=== PATIENT | male | born 1935 | race Asian ===

== ENCOUNTER 2023-04-08 13:56 | Inpatient (IN) | payer OTHER ==
[~2023-04-08] VITALS: Ht 167.6 cm; Wt 73.0 kg
[2023-04-08 14:00] VITALS: BP_SYST 121; PULSE 82; RESP 16; TEMP 97.8; O2SAT 97
[2023-04-08 14:39] LABS: BASOPHILS % (AUTO) 0.4 % (0.0-2.0); EOSINOPHILS % (AUTO) 0.6 % (0.0-4.0); HEMATOCRIT 30.2 % (36-54); HEMOGLOBIN 9.7 g/dL (14.0-18.0); LYMPHOCYTES # (AUTO) 0.9 K/uL (1.0-5.5); LYMPHOCYTES % (AUTO) 10.6 % (20.5-51.5); MEAN CORPUSCULAR HEMOGLOBIN 24 pg (27-31); MEAN CORPUSCULAR HGB CONC 32 % (32-36); MEAN CORPUSCULAR VOLUME 76 fL (79.0-98.0); MONOCYTES # (AUTO) 0.5 K/uL (0.0-1.0); MONOCYTES % (AUTO) 6.6 % (1.7-9.3); NEUTROPHILS # (AUTO) 6.7 K/uL (1.8-7.7); NEUTROPHILS % (AUTO) 81.8 % (40.0-70.0); PLATELET COUNT (AUTO) 154 K/uL (130-430); RED BLOOD CELL COUNT(AUTO) 3.98 MIL/uL (4.2-6.2); RED CELL DISTRIBUTION WIDTH 16.3 % (9.0-15.0); WHITE BLOOD COUNT (AUTO) 8.2 K/uL (4.8-10.8)
[2023-04-08 14:43] LABS: BILIRUBIN,URINE 2+ (NEGATIVE); BLOOD, URINE 3+ (NEGATIVE); COLOR,URINE YELLOW (YELLOW); GLUCOSE,URINE NEGATIVE (NEGATIVE); KETONES,URINE TRACE (NEGATIVE); LEUKOCYTE ESTERASE ,URINE 3+ (NEGATIVE); NITRITE, URINE POSITIVE (NEGATIVE); PH,URINE 5.5 (5.0-8.0); PROTEIN URINE 1+ (NEGATIVE)
[2023-04-08 14:52] LABS: CLARITY/URINE HAZY (CLEAR)
[2023-04-08 14:55] LABS: BACTERIA,URINE MODERATE /HPF (None Seen); CALCIUM OXALATE CRYSTALS,UR 0-10 /HPF (None Seen); MUCUS,URINE None Seen /LPF (None Seen); WBC,URINE 50-80 /HPF (0-3)
[2023-04-08 15:20] LABS: ANION GAP 5 (5-15); CARBON DIOXIDE 30 mmol/L (23-29); CHLORIDE 93 mmol/L (98-107); CREATININE 1.38 mg/dL (0.55-1.30); GLUCOSE 185 mg/dL (74-106); POTASSIUM 3.2 mmol/L (3.5-5.1); SODIUM SERUM 128 mmol/L (136-145); UREA NITROGEN, BLOOD 26 mg/dL (8-21)
[2023-04-08 15:23] LABS: INR 1.3 (0.80-1.20); PROTHROMBIN TIME 13.3 SECS (9.5-12.5)
[2023-04-08 15:24] LABS: ALANINE AMINOTRANSFERASE 57 U/L (12-78); ALBUMIN 1.8 g/dL (3.4-4.8); ASPARTATE AMINOTRANSFERASE 113 U/L (10-37); LIPASE 131 U/L (73-393); TOTAL BILIRUBIN 3.4 mg/dL (0.0-1.0); TOTAL PROTEIN, SERUM 6.3 g/dL (6.4-8.3)
[2023-04-08] MEDS ORDERED: PIPERACILLIN/TAZOBACTAM 2.25 GM in NS 50 ML IV ONE (15:45)
[2023-04-08] MEDS ORDERED: NS 500 ML IV ONE (15:45)
[2023-04-08] MEDS ORDERED: POTASSIUM CHLORIDE 20 MEQ/PKT PACKET PO ONE (15:45)
[2023-04-08] MEDS ORDERED: VANCOMYCIN HCL 1,000 MG in NS 250 ML IV ONE (15:45)
[2023-04-08] MEDS ORDERED: APIX2.5T PO (16:34)
[2023-04-08] MEDS ORDERED: BENI20 PO (16:34)
[2023-04-08] MEDS ORDERED: [UNRECOGNIZED DRUG - OTHER] PO (16:34)
[2023-04-08] MEDS ORDERED: SERT25TA PO (16:34)
[2023-04-08] MEDS ORDERED: HYDR-3917 PO (16:34)
[2023-04-08] MEDS ORDERED: TAMS-11 PO (16:34)
[2023-04-08] MEDS ORDERED: LEVO125T8 PO (16:34)
[2023-04-08] MEDS ORDERED: INSU100V9 SQ (16:34)
[2023-04-08] MEDS ORDERED: OMEP20CA15 PO (16:34)
[2023-04-08] MEDS ORDERED: FER300L PO (16:34)
[2023-04-08] MEDS ORDERED: URSO500T7 PO (16:34)
[2023-04-08] MEDS ORDERED: FURO-149 PO (16:34)
[2023-04-08] MEDS ORDERED: INSU200I SQ (16:34)
[2023-04-08] MEDS ORDERED: MONT-47 (16:34)
[2023-04-08] MEDS ORDERED: ROSU10TA2 PO (16:34)
[2023-04-08] MEDS ORDERED: FENO145T PO (16:34)
[2023-04-08] MEDS ORDERED: CARV3.1246 PO (16:34)
[2023-04-08] MEDS ORDERED: PIPERACILLIN/TAZOBACTAM 2.25 GM VIAL IV ONE (16:51)
[2023-04-08] MEDS ORDERED: VANCOMYCIN HCL 1000 MG/VIAL IV ONE (16:51)
[2023-04-08] MEDS ORDERED: ONDANSETRON HCL 4 MG/2 ML VIAL IVP ONE (17:15)
[2023-04-08 20:35] VITALS: BP_SYST 136; PULSE 70; RESP 18; TEMP 96.8; O2SAT 99
[2023-04-09] VITALS (13 sets, daily range): BP systolic 115–136; PULSE 70–74; RESP 16–18; TEMP 96.2–97.8; O2SAT 93–99
[2023-04-09] MEDS ORDERED: NALOXONE HCL 0.4 MG/ML AMP (NARCAN) IVP PRN (01:00)
[2023-04-09] MEDS ORDERED: HYDROcodone/ACETAMIN 5-325 MG TAB (NORCO/ VICODIN) PO PRN (01:00)
[2023-04-09] MEDS ORDERED: PIPERACILLIN/TAZO 2.25G/DEX-IS 50 ML IV SCH ×2 (01:30→09:00)
[2023-04-09] MEDS ORDERED: DICYCLOMINE HCL 10 MG CAPSULE PO PRN (01:30)
[2023-04-09] MEDS: TAMSULOSIN HCL 0.4 MG CAP PO SCH ×2 (02:22→10:02)
[2023-04-09] MEDS: APIXABAN 2.5 MG TABLET PO SCH ×3 (02:25→22:22)
[2023-04-09] MEDS ORDERED: PIPERACILLIN/TAZOBACTAM 2.25 GM VIAL IV ONE (03:20)
[2023-04-09 05:57] LABS: EOSINOPHILS # (AUTO) 0.1 K/uL (0.0-0.4); EOSINOPHILS % (AUTO) 1.1 % (0.0-4.0); HEMATOCRIT 28.7 % (36-54); HEMOGLOBIN 9.3 g/dL (14.0-18.0); LYMPHOCYTES # (AUTO) 0.6 K/uL (1.0-5.5); LYMPHOCYTES % (AUTO) 8.5 % (20.5-51.5); MEAN CORPUSCULAR HEMOGLOBIN 25 pg (27-31); MEAN CORPUSCULAR HGB CONC 32 % (32-36); MEAN CORPUSCULAR VOLUME 76 fL (79.0-98.0); MONOCYTES # (AUTO) 0.4 K/uL (0.0-1.0); MONOCYTES % (AUTO) 6.4 % (1.7-9.3); NEUTROPHILS # (AUTO) 5.9 K/uL (1.8-7.7); PLATELET COUNT (AUTO) 145 K/uL (130-430); RED BLOOD CELL COUNT(AUTO) 3.79 MIL/uL (4.2-6.2); RED CELL DISTRIBUTION WIDTH 16.4 % (9.0-15.0); WHITE BLOOD COUNT (AUTO) 7.1 K/uL (4.8-10.8)
[2023-04-09 06:40] LABS: ALANINE AMINOTRANSFERASE 51 U/L (12-78); ALBUMIN 1.6 g/dL (3.4-4.8); ANION GAP 6 (5-15); ASPARTATE AMINOTRANSFERASE 92 U/L (10-37); CARBON DIOXIDE 28 mmol/L (23-29); CHLORIDE 93 mmol/L (98-107); CHOLESTEROL 106 mg/dL (<200); CREATININE 1.29 mg/dL (0.55-1.30); GLUCOSE 196 mg/dL (74-106); HDL CHOLESTEROL 15 mg/dL (>45); POTASSIUM 3.5 mmol/L (3.5-5.1); SODIUM SERUM 127 mmol/L (136-145); TOTAL BILIRUBIN 3.3 mg/dL (0.0-1.0); TOTAL PROTEIN, SERUM 6.1 g/dL (6.4-8.3); TRIGLYCERIDES 153 mg/dL (30-150); UREA NITROGEN, BLOOD 24 mg/dL (8-21)
[2023-04-09] MEDS: INSULIN REGULAR, HUMAN 100 UNITS/ML, 3 ML VIAL (humuLIN R) SUBCUT PRN ×3 (07:58→17:40)
[2023-04-09] MEDS ORDERED: FERROUS SULFATE 300 MG/5 ML UDC PO SCH (09:00)
[2023-04-09] MEDS: PIPERACILLIN/TAZO 2.25G/DEX-IS 50 ML IV SCH ×3 (09:59→21:23)
[2023-04-09] MEDS: LEVOTHYROXINE SODIUM 0.125 MG TABLET PO SCH (10:00)
[2023-04-09] MEDS: CARVEDILOL 3.125 MG TABLET (COREG) PO SCH (10:02)
[2023-04-09] MEDS: MONTELUKAST 10 MG TABLET PO SCH (10:03)
[2023-04-09] MEDS: ursodioL 300 MG CAPSULE PO SCH ×3 (10:03→21:22)
[2023-04-09] MEDS: PANTOPRAZOLE SODIUM 40 MG TAB PO SCH (10:03)
[2023-04-09] MEDS: INSULIN GLARGINE 100 UNITS/ML, 10 ML VIAL SQ SCH (10:06)
[2023-04-09] MEDS: FUROSEMIDE 40 MG TABLET PO SCH (10:08)
[2023-04-09] MEDS ORDERED: COMMUNICATION ORDER XX ONE (16:15)
[2023-04-09] MEDS ORDERED: ROSUVASTATIN CALCIUM 5 MG/TAB (CRESTOR) PO SCH (21:00)
[2023-04-09] MEDS: ATORVASTATIN 20 MG TABLET PO SCH (21:22)
[2023-04-09] MEDS: SERTRALINE HCL 50 MG TABLET PO SCH (21:22)
[2023-04-09] MEDS: FENOFIBRATE NANOCRYSTALLIZED 48 MG TABLET (TRICOR) PO SCH (21:23)
[2023-04-09] MEDS: ALBUTEROL SULFATE 0.083% 2.5 MG/3 ML VIAL.NEB INH PRN (22:48)
[2023-04-10] VITALS (7 sets, daily range): BP systolic 107–133; PULSE 67–79; RESP 16–17; TEMP 96.8–97.9; O2SAT 97–100
[2023-04-10] MEDS: PIPERACILLIN/TAZO 2.25G/DEX-IS 50 ML IV SCH ×4 (03:07→22:13)
[2023-04-10 06:06] LABS: BASOPHILS % (AUTO) 0.2 % (0.0-2.0); EOSINOPHILS # (AUTO) 0.2 K/uL (0.0-0.4); EOSINOPHILS % (AUTO) 2.8 % (0.0-4.0); HEMATOCRIT 29.1 % (36-54); HEMOGLOBIN 9.4 g/dL (14.0-18.0); LYMPHOCYTES # (AUTO) 0.7 K/uL (1.0-5.5); MEAN CORPUSCULAR HEMOGLOBIN 25 pg (27-31); MEAN CORPUSCULAR HGB CONC 33 % (32-36); MEAN CORPUSCULAR VOLUME 76 fL (79.0-98.0); MONOCYTES # (AUTO) 0.4 K/uL (0.0-1.0); NEUTROPHILS # (AUTO) 6.2 K/uL (1.8-7.7); PLATELET COUNT (AUTO) 140 K/uL (130-430); RED BLOOD CELL COUNT(AUTO) 3.84 MIL/uL (4.2-6.2); RED CELL DISTRIBUTION WIDTH 16.4 % (9.0-15.0); WHITE BLOOD COUNT (AUTO) 7.5 K/uL (4.8-10.8)
[2023-04-10 06:14] LABS: TOTAL IRON BIND. CAPACITY 126 ug/dL (250-450)
[2023-04-10 06:47] LABS: ERYTHROCYTE SEDIMENTATION RATE 66 MM/HR (0-15)
[2023-04-10 06:58] LABS: ALANINE AMINOTRANSFERASE 50 U/L (12-78); ALBUMIN 1.5 g/dL (3.4-4.8); ANION GAP 5 (5-15); ASPARTATE AMINOTRANSFERASE 90 U/L (10-37); CALCIUM 7.8 mg/dL (8.4-11.0); CARBON DIOXIDE 29 mmol/L (23-29); CHLORIDE 93 mmol/L (98-107); CREATININE 1.41 mg/dL (0.55-1.30); GLUCOSE 126 mg/dL (74-106); PHOSPHORUS 2.1 mg/dL (2.7-4.5); POTASSIUM 3.5 mmol/L (3.5-5.1); SODIUM SERUM 127 mmol/L (136-145); THYROID STIMULATING HORMONE 5.69 uIu/mL (0.34-4.82); UREA NITROGEN, BLOOD 22 mg/dL (8-21)
[2023-04-10] MEDS: MONTELUKAST 10 MG TABLET PO SCH (10:37)
[2023-04-10] MEDS: CARVEDILOL 3.125 MG TABLET (COREG) PO SCH (10:37)
[2023-04-10] MEDS: ursodioL 300 MG CAPSULE PO SCH ×3 (10:37→20:23)
[2023-04-10] MEDS: TAMSULOSIN HCL 0.4 MG CAP PO SCH (10:37)
[2023-04-10] MEDS: PANTOPRAZOLE SODIUM 40 MG TAB PO SCH (10:38)
[2023-04-10] MEDS: LEVOTHYROXINE SODIUM 0.125 MG TABLET PO SCH (10:38)
[2023-04-10] MEDS: FUROSEMIDE 40 MG TABLET PO SCH (10:38)
[2023-04-10] MEDS: FERROUS SULFATE 325 MG TABLET.DR PO SCH (10:38)
[2023-04-10] MEDS: APIXABAN 2.5 MG TABLET PO SCH ×2 (10:50→20:36)
[2023-04-10] MEDS: INSULIN GLARGINE 100 UNITS/ML, 10 ML VIAL SQ SCH (10:51)
[2023-04-10] MEDS ORDERED: NA PHOS 30 MM in NS 250 ML IV ONE (11:30)
[2023-04-10] MEDS: INSULIN REGULAR, HUMAN 100 UNITS/ML, 3 ML VIAL (humuLIN R) SUBCUT PRN ×2 (11:48→17:09)
[2023-04-10] MEDS: NACL 0.9% 1,000 ML IV SCH ×3 (11:50→14:00)
[2023-04-10] MEDS: ALBUTEROL SULFATE 0.083% 2.5 MG/3 ML VIAL.NEB INH PRN (11:57)
[2023-04-10] MEDS: DIPHENHYDRAMINE HCL 50 MG CAPSULE PO PRN (17:03)
[2023-04-10] MEDS: FENOFIBRATE NANOCRYSTALLIZED 48 MG TABLET (TRICOR) PO SCH (20:23)
[2023-04-10] MEDS: ATORVASTATIN 20 MG TABLET PO SCH (20:23)
[2023-04-10] MEDS: SERTRALINE HCL 50 MG TABLET PO SCH (20:23)
[2023-04-11] VITALS: BP_SYST 117; PULSE 70; RESP 16; TEMP 97; O2SAT 99
[2023-04-11] MEDS: DIPHENHYDRAMINE HCL 50 MG CAPSULE PO PRN (02:00)
[2023-04-11] MEDS: PIPERACILLIN/TAZO 2.25G/DEX-IS 50 ML IV SCH ×3 (04:08→16:00)
[2023-04-11 05:27] LABS: ERYTHROCYTE SEDIMENTATION RATE 34 MM/HR (0-15)
[2023-04-11 05:34] LABS: BASOPHILS % (AUTO) 0.3 % (0.0-2.0); EOSINOPHILS # (AUTO) 0.3 K/uL (0.0-0.4); EOSINOPHILS % (AUTO) 3.6 % (0.0-4.0); HEMATOCRIT 29.1 % (36-54); HEMOGLOBIN 9.5 g/dL (14.0-18.0); LYMPHOCYTES # (AUTO) 1.1 K/uL (1.0-5.5); LYMPHOCYTES % (AUTO) 15.3 % (20.5-51.5); MEAN CORPUSCULAR HEMOGLOBIN 25 pg (27-31); MEAN CORPUSCULAR HGB CONC 33 % (32-36); MEAN CORPUSCULAR VOLUME 75 fL (79.0-98.0); MONOCYTES # (AUTO) 0.4 K/uL (0.0-1.0); MONOCYTES % (AUTO) 4.9 % (1.7-9.3); NEUTROPHILS # (AUTO) 5.7 K/uL (1.8-7.7); NEUTROPHILS % (AUTO) 75.9 % (40.0-70.0); PLATELET COUNT (AUTO) 147 K/uL (130-430); RED BLOOD CELL COUNT(AUTO) 3.87 MIL/uL (4.2-6.2); RED CELL DISTRIBUTION WIDTH 16.7 % (9.0-15.0); WHITE BLOOD COUNT (AUTO) 7.5 K/uL (4.8-10.8)
[2023-04-11 06:12] LABS: ALANINE AMINOTRANSFERASE 53 U/L (12-78); ALBUMIN 1.5 g/dL (3.4-4.8); ANION GAP 9 (5-15); ASPARTATE AMINOTRANSFERASE 90 U/L (10-37); CALCIUM 7.9 mg/dL (8.4-11.0); CARBON DIOXIDE 28 mmol/L (23-29); CHLORIDE 93 mmol/L (98-107); CREATININE 1.35 mg/dL (0.55-1.30); GLUCOSE 88 mg/dL (74-106); PHOSPHORUS 3.6 mg/dL (2.7-4.5); POTASSIUM 3.3 mmol/L (3.5-5.1); SODIUM SERUM 130 mmol/L (136-145); TOTAL BILIRUBIN 4.1 mg/dL (0.0-1.0); UREA NITROGEN, BLOOD 21 mg/dL (8-21)
[2023-04-11] MEDS: NACL 0.9% 1,000 ML IV SCH (06:34)
[2023-04-11 07:30] VITALS: O2SAT 96
[2023-04-11 08:11] VITALS: BP_SYST 119; PULSE 70; RESP 16; TEMP 96.8; O2SAT 98
[2023-04-11] MEDS ORDERED: INSULIN GLARGINE 100 UNITS/ML, 10 ML VIAL SQ SCH (09:00)
[2023-04-11] MEDS: FERROUS SULFATE 325 MG TABLET.DR PO SCH (09:07)
[2023-04-11] MEDS: ursodioL 300 MG CAPSULE PO SCH ×2 (09:07→15:29)
[2023-04-11] MEDS: TAMSULOSIN HCL 0.4 MG CAP PO SCH (09:07)
[2023-04-11] MEDS: PANTOPRAZOLE SODIUM 40 MG TAB PO SCH (09:08)
[2023-04-11] MEDS: MONTELUKAST 10 MG TABLET PO SCH (09:08)
[2023-04-11] MEDS: CARVEDILOL 3.125 MG TABLET (COREG) PO SCH (09:09)
[2023-04-11] MEDS: LEVOTHYROXINE SODIUM 0.125 MG TABLET PO SCH (09:09)
[2023-04-11] MEDS: APIXABAN 2.5 MG TABLET PO SCH (09:11)
[2023-04-11 12:00] VITALS: BP_SYST 106; PULSE 71; RESP 18; TEMP 97.8
[2023-04-11] MEDS ORDERED: LEVO125T8 PO (13:45)
[2023-04-11] MEDS ORDERED: AUG875 PO (13:45)
[2023-04-11] MEDS ORDERED: [UNRECOGNIZED DRUG - CODE] PO (13:48)
[2023-04-11 14:54] VITALS: BP_SYST 119; PULSE 70; RESP 16; TEMP 96.8; O2SAT 98
== END 2023-04-11 16:45 | disposition home or self-care (01) | DRG 919 ==
LOC: SED 13:56 → SMU 16:00
PROVIDERS: ADMIT Preventive Medicine Preventive Medicine/Occupational Environmental Medicine; ATTEND Specialist
DX: T85.79XA Infection and inflammatory reaction due to other internal prosthetic devices, implants and grafts, initial encounter (principal); E43 Unspecified severe protein-calorie malnutrition; K75.0 Abscess of liver; K80.63 Calculus of gallbladder and bile duct with acute cholecystitis with obstruction; N39.0 Urinary tract infection, site not specified; I13.0 Hypertensive heart and chronic kidney disease with heart failure and stage 1 through stage 4 chronic kidney disease, or unspecified chronic kidney disease; N17.9 Acute kidney failure, unspecified; E87.1 Hypo-osmolality and hyponatremia; I42.9 Cardiomyopathy, unspecified; R18.8 Other ascites; D63.8 Anemia in other chronic diseases classified elsewhere; E83.51 Hypocalcemia; E88.09 Other disorders of plasma-protein metabolism, not elsewhere classified; E83.39 Other disorders of phosphorus metabolism; I25.10 Atherosclerotic heart disease of native coronary artery without angina pectoris; F03.C0 Unspecified dementia, severe, without behavioral disturbance, psychotic disturbance, mood disturbance, and anxiety; E78.5 Hyperlipidemia, unspecified; K21.9 Gastro-esophageal reflux disease without esophagitis; J44.9 Chronic obstructive pulmonary disease, unspecified; E11.65 Type 2 diabetes mellitus with hyperglycemia; I50.9 Heart failure, unspecified; N40.0 Benign prostatic hyperplasia without lower urinary tract symptoms; I48.91 Unspecified atrial fibrillation; N18.30 Chronic kidney disease, stage 3 unspecified; E11.22 Type 2 diabetes mellitus with diabetic chronic kidney disease; Z95.0 Presence of cardiac pacemaker; Z88.1 Allergy status to other antibiotic agents; Z79.899 Other long term (current) drug therapy; Z79.4 Long term (current) use of insulin; Z79.01 Long term (current) use of anticoagulants; Z86.73 Personal history of transient ischemic attack (TIA), and cerebral infarction without residual deficits; Z87.891 Personal history of nicotine dependence; Z90.49 Acquired absence of other specified parts of digestive tract; Z68.26 Body mass index [BMI] 26.0-26.9, adult
CPT/HCPCS: 36415; 71045; 76376; 80053; 80061; 81000; 82962; 83037; 83540; 83550; 83605; 83690; 83735; 83880; 84100; 84443; 84484; 85025; 85610-TC; 85651-TC; 85730-TC; 87040; 87081; 87086; 87186-TC; 93005; 94640; 94760; 96365; 96368; 96375; 97116-GP; 97163-GP; 99291; J1815; J2405; J2543; J3370; J7030; J7050; Q0163

== ENCOUNTER 2023-04-14 04:31 | Inpatient (IN) | payer OTHER ==
[~2023-04-14] VITALS: Ht 167.6 cm; Wt 86.2 kg
[2023-04-14] VITALS (8 sets, daily range): BP systolic 107–127; PULSE 85–100; RESP 16–20; TEMP 97–97.8; O2SAT 32–99
[~2023-04-14 04:31] MED LIST: APIX2.5T PO; AUG875 PO; CARV3.1246 PO; FENO145T PO; FER300L PO; FURO-149 PO; HYDR-3917 PO; INSU100V9 SQ; LEVO125T8 PO; MONT-47; OMEP20CA15 PO; ROSU10TA2 PO; SERT25TA PO; TAMS-11 PO; URSO500T7 PO; [UNRECOGNIZED DRUG - CODE] PO; [UNRECOGNIZED DRUG - OTHER] PO
[2023-04-14 05:34] LABS: BASOPHILS # (AUTO) 0.1 K/uL (0.0-0.2); BASOPHILS % (AUTO) 0.6 % (0.0-2.0); EOSINOPHILS # (AUTO) 0.2 K/uL (0.0-0.4); EOSINOPHILS % (AUTO) 1.9 % (0.0-4.0); HEMATOCRIT 28.8 % (36-54); HEMOGLOBIN 9.3 g/dL (14.0-18.0); LYMPHOCYTES # (AUTO) 0.3 K/uL (1.0-5.5); LYMPHOCYTES % (AUTO) 2.5 % (20.5-51.5); MEAN CORPUSCULAR HEMOGLOBIN 25 pg (27-31); MEAN CORPUSCULAR HGB CONC 32 % (32-36); MEAN CORPUSCULAR VOLUME 76 fL (79.0-98.0); MONOCYTES # (AUTO) 0.1 K/uL (0.0-1.0); MONOCYTES % (AUTO) 1.4 % (1.7-9.3); NEUTROPHILS # (AUTO) 10.2 K/uL (1.8-7.7); NEUTROPHILS % (AUTO) 93.6 % (40.0-70.0); PLATELET COUNT (AUTO) 181 K/uL (130-430); RED CELL DISTRIBUTION WIDTH 16.9 % (9.0-15.0); WHITE BLOOD COUNT (AUTO) 10.9 K/uL (4.8-10.8)
[2023-04-14 05:59] LABS: ALANINE AMINOTRANSFERASE 64 U/L (12-78); ALBUMIN 1.9 g/dL (3.4-4.8); ANION GAP 7 (5-15); ASPARTATE AMINOTRANSFERASE 128 U/L (10-37); CALCIUM 8.2 mg/dL (8.4-11.0); CARBON DIOXIDE 26 mmol/L (23-29); CHLORIDE 88 mmol/L (98-107); GLUCOSE 131 mg/dL (74-106); POTASSIUM 3.7 mmol/L (3.5-5.1); SODIUM SERUM 121 mmol/L (136-145); TOTAL BILIRUBIN 6.4 mg/dL (0.0-1.0); TOTAL PROTEIN, SERUM 6.6 g/dL (6.4-8.3); UREA NITROGEN, BLOOD 21 mg/dL (8-21)
[2023-04-14 09:27] LABS: ABG O2 SAT% ESTIMATE 94.4 % (94.0-100.0); BLOOD GAS BASE EXCESS 2.8 mmol/L (-3.0-3.0); BLOOD GAS HCO3 25.3 mmol/L (21.0-27.0); BLOOD GAS PCO2 32.9 mmHg (32.0-45.0)
[2023-04-14 09:27] LABS: BILIRUBIN,URINE 3+ (NEGATIVE); BLOOD, URINE 3+ (NEGATIVE); CLARITY/URINE SL CLOUDY (CLEAR); COLOR,URINE YELLOW (YELLOW); GLUCOSE,URINE NEGATIVE (NEGATIVE); KETONES,URINE TRACE (NEGATIVE); LEUKOCYTE ESTERASE ,URINE TRACE (NEGATIVE); NITRITE, URINE NEGATIVE (NEGATIVE); PH,URINE 5.5 (5.0-8.0); PROTEIN URINE 1+ (NEGATIVE)
[2023-04-14 09:29] LABS: BLOOD GAS PH 7.504 (7.350-7.450)
[2023-04-14 09:37] LABS: BACTERIA,URINE MODERATE /HPF (None Seen)
[2023-04-14] MEDS ORDERED: IPRATROPIUM BROM 0.5 MG/2.5 ML VIAL.NEB (ATROVENT) INH ONE (09:45)
[2023-04-14] MEDS ORDERED: ALBUTEROL SULFATE 0.083% 2.5 MG/3 ML VIAL.NEB INH ONE (09:45)
[2023-04-14 09:48] LABS: INFLUENZA TYPE A negative (NEGATIVE); INFLUENZA TYPE B NEGATIVE (NEGATIVE)
[2023-04-14] MEDS ORDERED: AMOXICILLIN/POTASSIUM CLAV 875 MG TABLET PO SCH (10:30)
[2023-04-14] MEDS ORDERED: ALBUMIN HUMAN 25% 100 ML IV ONE (10:30)
[2023-04-14] MEDS ORDERED: HYDROcodone/ACETAMIN 5-325 MG TAB (NORCO/ VICODIN) PO PRN (10:30)
[2023-04-14] MEDS ORDERED: FUROSEMIDE 111.11 MG in D5W 90 ML IV ONE (10:30)
[2023-04-14 11:06] LABS: INR 1.5 (0.80-1.20); PROTHROMBIN TIME 15.5 SECS (9.5-12.5)
[2023-04-14] MEDS ORDERED: GLUCOSE (DEXTROSE) ORAL GEL -Adults PO PRN (12:30)
[2023-04-14] MEDS ORDERED: D5W 1,000 ML IV PRN (12:30)
[2023-04-14] MEDS ORDERED: DEXTROSE 50%-WATER 50 ML DISP.SYRIN IVP PRN (12:30)
[2023-04-14] MEDS: FUROSEMIDE 100 MG in D5W 90 ML IV SCH (13:46)
[2023-04-14] MEDS ORDERED: INSULIN REGULAR, HUMAN 100 UNITS/ML, 3 ML VIAL SUBCUT SCH (17:00)
[2023-04-14] MEDS: INSULIN REGULAR, HUMAN 100 UNITS/ML, 3 ML VIAL (humuLIN R) SUBCUT PRN ×2 (18:22→22:03)
[2023-04-14] MEDS: ceFAZolin SODIUM 1 GM in D5W 50 ML IV SCH (18:23)
[2023-04-14] MEDS: IPRATROPIUM/ALBUTEROL SULFATE 3 ML AMPUL.NEB (DUONEB) INH SCH (19:47)
[2023-04-14] MEDS ORDERED: ROSUVASTATIN CALCIUM 5 MG/TAB (CRESTOR) PO SCH (21:00)
[2023-04-14] MEDS: SERTRALINE HCL 50 MG TABLET PO SCH (21:40)
[2023-04-14] MEDS ORDERED: metOLazone 5 MG TABLET PO ONE (22:00)
[2023-04-14] MEDS ORDERED: ONDANSETRON HCL 4 MG/2 ML VIAL IVP PRN (22:30)
[2023-04-14] MEDS ORDERED: metOLazone 5 MG TABLET ONE (23:45)
[2023-04-15] VITALS (8 sets, daily range): BP systolic 106–139; PULSE 81–86; RESP 14–18; TEMP 96.8–98.7; O2SAT 94–100
[2023-04-15] MEDS: IPRATROPIUM/ALBUTEROL SULFATE 3 ML AMPUL.NEB (DUONEB) INH SCH ×4 (01:00→19:35)
[2023-04-15] MEDS ORDERED: ONDANSETRON HCL 4 MG/2 ML VIAL IVP PRN (01:15)
[2023-04-15 05:42] LABS: BASOPHILS % (AUTO) 0.1 % (0.0-2.0); EOSINOPHILS # (AUTO) 0.4 K/uL (0.0-0.4); EOSINOPHILS % (AUTO) 3.3 % (0.0-4.0); HEMATOCRIT 24.8 % (36-54); HEMOGLOBIN 7.9 g/dL (14.0-18.0); LYMPHOCYTES # (AUTO) 0.9 K/uL (1.0-5.5); LYMPHOCYTES % (AUTO) 7.7 % (20.5-51.5); MEAN CORPUSCULAR HEMOGLOBIN 24 pg (27-31); MEAN CORPUSCULAR HGB CONC 32 % (32-36); MEAN CORPUSCULAR VOLUME 77 fL (79.0-98.0); MONOCYTES # (AUTO) 0.6 K/uL (0.0-1.0); MONOCYTES % (AUTO) 5.3 % (1.7-9.3); NEUTROPHILS # (AUTO) 9.4 K/uL (1.8-7.7); NEUTROPHILS % (AUTO) 83.6 % (40.0-70.0); PLATELET COUNT (AUTO) 119 K/uL (130-430); RED BLOOD CELL COUNT(AUTO) 3.24 MIL/uL (4.2-6.2); RED CELL DISTRIBUTION WIDTH 16.8 % (9.0-15.0); WHITE BLOOD COUNT (AUTO) 11.2 K/uL (4.8-10.8)
[2023-04-15] MEDS: ceFAZolin SODIUM 1 GM in D5W 50 ML IV SCH ×2 (05:42→16:33)
[2023-04-15 05:58] LABS: ALANINE AMINOTRANSFERASE 44 U/L (12-78); ALBUMIN 1.7 g/dL (3.4-4.8); ANION GAP 6 (5-15); ASPARTATE AMINOTRANSFERASE 83 U/L (10-37); CALCIUM 7.9 mg/dL (8.4-11.0); CARBON DIOXIDE 27 mmol/L (23-29); CHLORIDE 87 mmol/L (98-107); CREATININE 1.85 mg/dL (0.55-1.30); GLUCOSE 140 mg/dL (74-106); PHOSPHORUS 2.4 mg/dL (2.7-4.5); POTASSIUM 3.9 mmol/L (3.5-5.1); SODIUM SERUM 120 mmol/L (136-145); TOTAL BILIRUBIN 5.4 mg/dL (0.0-1.0); TOTAL PROTEIN, SERUM 5.6 g/dL (6.4-8.3); UREA NITROGEN, BLOOD 26 mg/dL (8-21)
[2023-04-15] MEDS: LEVOTHYROXINE SODIUM 0.15 MG TABLET PO SCH (06:25)
[2023-04-15] MEDS ORDERED: OMEPRAZOLE Non-Formulary 20 MG CAPSULE.DR PO SCH (09:00)
[2023-04-15] MEDS: INSULIN GLARGINE 100 UNITS/ML, 10 ML VIAL SQ SCH (09:05)
[2023-04-15] MEDS: MONTELUKAST 10 MG TABLET PO SCH (10:39)
[2023-04-15] MEDS: TAMSULOSIN HCL 0.4 MG CAP PO SCH (10:39)
[2023-04-15] MEDS: ALBUMIN HUMAN 25% 50 ML IV SCH ×4 (10:39→21:53)
[2023-04-15] MEDS: PANTOPRAZOLE SODIUM 40 MG TAB PO SCH (10:40)
[2023-04-15] MEDS: FERROUS SULFATE 325 MG TABLET.DR PO SCH (10:41)
[2023-04-15] MEDS: CARVEDILOL 3.125 MG TABLET (COREG) PO SCH (10:41)
[2023-04-15] MEDS: ATORVASTATIN 20 MG TABLET PO SCH (10:42)
[2023-04-15] MEDS: INSULIN REGULAR, HUMAN 100 UNITS/ML, 3 ML VIAL (humuLIN R) SUBCUT PRN ×3 (12:03→21:59)
[2023-04-15] MEDS: FUROSEMIDE 100 MG in D5W 90 ML IV SCH (12:30)
[2023-04-15] MEDS: SERTRALINE HCL 50 MG TABLET PO SCH (21:53)
[2023-04-16] VITALS (9 sets, daily range): BP systolic 105–144; PULSE 69–87; RESP 16–18; TEMP 96.6–98; O2SAT 97–100
[2023-04-16] MEDS: IPRATROPIUM/ALBUTEROL SULFATE 3 ML AMPUL.NEB (DUONEB) INH SCH ×4 (01:07→20:26)
[2023-04-16 06:08] LABS: BASOPHILS % (AUTO) 0.2 % (0.0-2.0); EOSINOPHILS # (AUTO) 0.5 K/uL (0.0-0.4); EOSINOPHILS % (AUTO) 4.7 % (0.0-4.0); HEMATOCRIT 23.9 % (36-54); HEMOGLOBIN 7.8 g/dL (14.0-18.0); LYMPHOCYTES # (AUTO) 1.2 K/uL (1.0-5.5); LYMPHOCYTES % (AUTO) 12.5 % (20.5-51.5); MEAN CORPUSCULAR HEMOGLOBIN 25 pg (27-31); MEAN CORPUSCULAR HGB CONC 33 % (32-36); MEAN CORPUSCULAR VOLUME 75 fL (79.0-98.0); MONOCYTES # (AUTO) 0.8 K/uL (0.0-1.0); MONOCYTES % (AUTO) 8.2 % (1.7-9.3); NEUTROPHILS # (AUTO) 7.3 K/uL (1.8-7.7); NEUTROPHILS % (AUTO) 74.4 % (40.0-70.0); PLATELET COUNT (AUTO) 130 K/uL (130-430); RED BLOOD CELL COUNT(AUTO) 3.17 MIL/uL (4.2-6.2); RED CELL DISTRIBUTION WIDTH 16.8 % (9.0-15.0); WHITE BLOOD COUNT (AUTO) 9.9 K/uL (4.8-10.8)
[2023-04-16] MEDS: LEVOTHYROXINE SODIUM 0.15 MG TABLET PO SCH (06:13)
[2023-04-16] MEDS: ceFAZolin SODIUM 1 GM in D5W 50 ML IV SCH ×2 (06:16→16:22)
[2023-04-16] MEDS: INSULIN REGULAR, HUMAN 100 UNITS/ML, 3 ML VIAL (humuLIN R) SUBCUT PRN ×4 (06:18→21:36)
[2023-04-16 06:41] LABS: ALANINE AMINOTRANSFERASE 29 U/L (12-78); ALBUMIN 2.3 g/dL (3.4-4.8); ANION GAP 5 (5-15); ASPARTATE AMINOTRANSFERASE 77 U/L (10-37); CALCIUM 8.5 mg/dL (8.4-11.0); CARBON DIOXIDE 30 mmol/L (23-29); CHLORIDE 86 mmol/L (98-107); CREATININE 1.78 mg/dL (0.55-1.30); GLUCOSE 157 mg/dL (74-106); PHOSPHORUS 2.8 mg/dL (2.7-4.5); SODIUM SERUM 121 mmol/L (136-145); TOTAL BILIRUBIN 5.1 mg/dL (0.0-1.0); TOTAL PROTEIN, SERUM 5.9 g/dL (6.4-8.3); UREA NITROGEN, BLOOD 29 mg/dL (8-21)
[2023-04-16] MEDS: PANTOPRAZOLE SODIUM 40 MG TAB PO SCH (09:25)
[2023-04-16] MEDS: TAMSULOSIN HCL 0.4 MG CAP PO SCH (09:25)
[2023-04-16] MEDS: FERROUS SULFATE 325 MG TABLET.DR PO SCH (09:25)
[2023-04-16] MEDS: CARVEDILOL 3.125 MG TABLET (COREG) PO SCH (09:27)
[2023-04-16] MEDS: ATORVASTATIN 20 MG TABLET PO SCH (09:27)
[2023-04-16] MEDS: MONTELUKAST 10 MG TABLET PO SCH (09:27)
[2023-04-16] MEDS: INSULIN GLARGINE 100 UNITS/ML, 10 ML VIAL SQ SCH (09:31)
[2023-04-16] MEDS: FUROSEMIDE 100 MG in D5W 90 ML IV SCH (09:40)
[2023-04-16] MEDS ORDERED: POTASSIUM CHLORIDE 20 MEQ TAB.PRT.SR PO ONE (12:15)
[2023-04-16] MEDS: DIPHENHYDRAMINE HCL 50 MG CAPSULE PO PRN (16:18)
[2023-04-16] MEDS: SERTRALINE HCL 50 MG TABLET PO SCH (21:34)
[2023-04-17] VITALS (11 sets, daily range): BP systolic 106–117; PULSE 69–80; RESP 16–20; TEMP 96.6–97.6; O2SAT 94–100
[2023-04-17] MEDS: IPRATROPIUM/ALBUTEROL SULFATE 3 ML AMPUL.NEB (DUONEB) INH SCH ×4 (01:39→20:14)
[2023-04-17 05:22] LABS: BASOPHILS % (AUTO) 0.4 % (0.0-2.0); EOSINOPHILS # (AUTO) 0.6 K/uL (0.0-0.4); EOSINOPHILS % (AUTO) 6.7 % (0.0-4.0); HEMATOCRIT 24.6 % (36-54); HEMOGLOBIN 8.2 g/dL (14.0-18.0); LYMPHOCYTES # (AUTO) 1.6 K/uL (1.0-5.5); LYMPHOCYTES % (AUTO) 16.9 % (20.5-51.5); MEAN CORPUSCULAR HEMOGLOBIN 25 pg (27-31); MEAN CORPUSCULAR HGB CONC 33 % (32-36); MEAN CORPUSCULAR VOLUME 75 fL (79.0-98.0); MONOCYTES # (AUTO) 0.8 K/uL (0.0-1.0); MONOCYTES % (AUTO) 8.9 % (1.7-9.3); NEUTROPHILS # (AUTO) 6.2 K/uL (1.8-7.7); NEUTROPHILS % (AUTO) 67.1 % (40.0-70.0); PLATELET COUNT (AUTO) 137 K/uL (130-430); RED CELL DISTRIBUTION WIDTH 16.4 % (9.0-15.0); WHITE BLOOD COUNT (AUTO) 9.3 K/uL (4.8-10.8)
[2023-04-17 05:46] LABS: ANION GAP 4 (5-15); CALCIUM 8.4 mg/dL (8.4-11.0); CARBON DIOXIDE 30 mmol/L (23-29); CREATININE 2.08 mg/dL (0.55-1.30); GLUCOSE 129 mg/dL (74-106); PHOSPHORUS 2.9 mg/dL (2.7-4.5); UREA NITROGEN, BLOOD 32 mg/dL (8-21)
[2023-04-17 05:58] LABS: CHLORIDE 85 mmol/L (98-107); SODIUM SERUM 119 mmol/L (136-145)
[2023-04-17 06:09] LABS: ERYTHROCYTE SEDIMENTATION RATE 14 MM/HR (0-15)
[2023-04-17] MEDS: LEVOTHYROXINE SODIUM 0.15 MG TABLET PO SCH (06:24)
[2023-04-17] MEDS: ceFAZolin SODIUM 1 GM in D5W 50 ML IV SCH ×2 (06:24→17:39)
[2023-04-17] MEDS: INSULIN GLARGINE 100 UNITS/ML, 10 ML VIAL SQ SCH (08:57)
[2023-04-17] MEDS: FERROUS SULFATE 325 MG TABLET.DR PO SCH (10:16)
[2023-04-17] MEDS: TAMSULOSIN HCL 0.4 MG CAP PO SCH (10:16)
[2023-04-17] MEDS: PANTOPRAZOLE SODIUM 40 MG TAB PO SCH (10:16)
[2023-04-17] MEDS: ATORVASTATIN 20 MG TABLET PO SCH (10:17)
[2023-04-17] MEDS: MONTELUKAST 10 MG TABLET PO SCH (10:17)
[2023-04-17] MEDS: CARVEDILOL 3.125 MG TABLET (COREG) PO SCH (10:18)
[2023-04-17] MEDS: DIPHENHYDRAMINE HCL 50 MG CAPSULE PO PRN (10:37)
[2023-04-17] MEDS ORDERED: POTASSIUM CHLORIDE 20 MEQ TAB.PRT.SR PO ONE (11:45)
[2023-04-17] MEDS ORDERED: MAGNESIUM SULFATE 50 ML IV ONE (11:45)
[2023-04-17] MEDS: INSULIN REGULAR, HUMAN 100 UNITS/ML, 3 ML VIAL (humuLIN R) SUBCUT PRN ×3 (11:57→21:31)
[2023-04-17] MEDS: NACL 0.9% 1,000 ML IV SCH (14:53)
[2023-04-17] MEDS: SILDENAFIL CITRATE 20 MG TABLET PO SCH ×2 (14:58→21:29)
[2023-04-17] MEDS: SERTRALINE HCL 50 MG TABLET PO SCH (21:29)
[2023-04-17] MEDS: traZODone HCL 50 MG TABLET (DESYREL) PO PRN (21:38)
[2023-04-18] VITALS (9 sets, daily range): BP systolic 101–141; PULSE 70–72; RESP 14–18; TEMP 97.3–98.4; O2SAT 95–100
[2023-04-18] MEDS: IPRATROPIUM/ALBUTEROL SULFATE 3 ML AMPUL.NEB (DUONEB) INH SCH ×4 (01:00→20:01)
[2023-04-18 05:05] LABS: BASOPHILS % (AUTO) 0.3 % (0.0-2.0); EOSINOPHILS # (AUTO) 0.8 K/uL (0.0-0.4); EOSINOPHILS % (AUTO) 9.5 % (0.0-4.0); HEMATOCRIT 25.1 % (36-54); HEMOGLOBIN 8.3 g/dL (14.0-18.0); LYMPHOCYTES # (AUTO) 1.5 K/uL (1.0-5.5); LYMPHOCYTES % (AUTO) 18.4 % (20.5-51.5); MEAN CORPUSCULAR HEMOGLOBIN 25 pg (27-31); MEAN CORPUSCULAR HGB CONC 33 % (32-36); MEAN CORPUSCULAR VOLUME 76 fL (79.0-98.0); MONOCYTES # (AUTO) 0.9 K/uL (0.0-1.0); MONOCYTES % (AUTO) 10.6 % (1.7-9.3); NEUTROPHILS # (AUTO) 5.1 K/uL (1.8-7.7); NEUTROPHILS % (AUTO) 61.2 % (40.0-70.0); PLATELET COUNT (AUTO) 141 K/uL (130-430); RED BLOOD CELL COUNT(AUTO) 3.32 MIL/uL (4.2-6.2); RED CELL DISTRIBUTION WIDTH 16.5 % (9.0-15.0); WHITE BLOOD COUNT (AUTO) 8.3 K/uL (4.8-10.8)
[2023-04-18 05:18] LABS: ERYTHROCYTE SEDIMENTATION RATE 10 MM/HR (0-15)
[2023-04-18] MEDS: DIPHENHYDRAMINE HCL 50 MG CAPSULE PO PRN (05:25)
[2023-04-18] MEDS: ceFAZolin SODIUM 1 GM in D5W 50 ML IV SCH ×2 (05:27→19:23)
[2023-04-18] MEDS: LEVOTHYROXINE SODIUM 0.15 MG TABLET PO SCH (06:01)
[2023-04-18 06:03] LABS: ALANINE AMINOTRANSFERASE 5 U/L (12-78); ALBUMIN 1.8 g/dL (3.4-4.8); ANION GAP 6 (5-15); ASPARTATE AMINOTRANSFERASE 133 U/L (10-37); CALCIUM 8.3 mg/dL (8.4-11.0); CARBON DIOXIDE 30 mmol/L (23-29); CHLORIDE 89 mmol/L (98-107); CREATININE 1.85 mg/dL (0.55-1.30); GLUCOSE 102 mg/dL (74-106); PHOSPHORUS 2.5 mg/dL (2.7-4.5); POTASSIUM 3.3 mmol/L (3.5-5.1); SODIUM SERUM 125 mmol/L (136-145); TOTAL PROTEIN, SERUM 5.4 g/dL (6.4-8.3); UREA NITROGEN, BLOOD 35 mg/dL (8-21)
[2023-04-18 06:06] LABS: CREATININE, URINE 134.9 mg/dL (Not Estab.); MICROALBUMIN URINE RANDOM 200.6 ug/mL (Not Estab.)
[2023-04-18] MEDS: MONTELUKAST 10 MG TABLET PO SCH (09:57)
[2023-04-18] MEDS: CARVEDILOL 3.125 MG TABLET (COREG) PO SCH (10:00)
[2023-04-18] MEDS: ATORVASTATIN 20 MG TABLET PO SCH (10:00)
[2023-04-18] MEDS: SILDENAFIL CITRATE 20 MG TABLET PO SCH ×3 (10:01→21:46)
[2023-04-18] MEDS: TAMSULOSIN HCL 0.4 MG CAP PO SCH (10:01)
[2023-04-18] MEDS: FERROUS SULFATE 325 MG TABLET.DR PO SCH (10:01)
[2023-04-18] MEDS: PANTOPRAZOLE SODIUM 40 MG TAB PO SCH (10:01)
[2023-04-18] MEDS: INSULIN GLARGINE 100 UNITS/ML, 10 ML VIAL SQ SCH (10:03)
[2023-04-18] MEDS ORDERED: K PHOS 30 MM in NS 250 ML IV ONE (11:00)
[2023-04-18] MEDS: NACL 0.9% 1,000 ML IV SCH (13:00)
[2023-04-18] MEDS: traZODone HCL 50 MG TABLET (DESYREL) PO PRN (21:53)
[2023-04-18] MEDS: INSULIN REGULAR, HUMAN 100 UNITS/ML, 3 ML VIAL (humuLIN R) SUBCUT PRN (21:53)
[2023-04-19] VITALS (10 sets, daily range): BP systolic 91–119; PULSE 67–71; RESP 14–18; TEMP 96.8–97.9; O2SAT 95–99
[2023-04-19] MEDS: IPRATROPIUM/ALBUTEROL SULFATE 3 ML AMPUL.NEB (DUONEB) INH SCH ×4 (01:00→20:02)
[2023-04-19 05:23] LABS: BASOPHILS % (AUTO) 0.3 % (0.0-2.0); EOSINOPHILS # (AUTO) 1.1 K/uL (0.0-0.4); EOSINOPHILS % (AUTO) 12.6 % (0.0-4.0); HEMATOCRIT 26.7 % (36-54); HEMOGLOBIN 8.6 g/dL (14.0-18.0); LYMPHOCYTES # (AUTO) 1.6 K/uL (1.0-5.5); LYMPHOCYTES % (AUTO) 18.3 % (20.5-51.5); MEAN CORPUSCULAR HEMOGLOBIN 24 pg (27-31); MEAN CORPUSCULAR HGB CONC 32 % (32-36); MEAN CORPUSCULAR VOLUME 76 fL (79.0-98.0); MONOCYTES # (AUTO) 0.8 K/uL (0.0-1.0); MONOCYTES % (AUTO) 8.9 % (1.7-9.3); NEUTROPHILS # (AUTO) 5.4 K/uL (1.8-7.7); NEUTROPHILS % (AUTO) 59.9 % (40.0-70.0); PLATELET COUNT (AUTO) 153 K/uL (130-430); RED BLOOD CELL COUNT(AUTO) 3.53 MIL/uL (4.2-6.2); RED CELL DISTRIBUTION WIDTH 16.8 % (9.0-15.0)
[2023-04-19 05:37] LABS: ANION GAP 6 (5-15); CALCIUM 8.1 mg/dL (8.4-11.0); CARBON DIOXIDE 28 mmol/L (23-29); CREATININE 1.79 mg/dL (0.55-1.30); GLUCOSE 121 mg/dL (74-106); PHOSPHORUS 3.9 mg/dL (2.7-4.5); POTASSIUM 3.5 mmol/L (3.5-5.1); UREA NITROGEN, BLOOD 38 mg/dL (8-21)
[2023-04-19 05:45] LABS: ERYTHROCYTE SEDIMENTATION RATE 15 MM/HR (0-15)
[2023-04-19 06:09] LABS: CHLORIDE 85 mmol/L (98-107); SODIUM SERUM 119 mmol/L (136-145)
[2023-04-19] MEDS: ceFAZolin SODIUM 1 GM in D5W 50 ML IV SCH ×2 (06:23→16:24)
[2023-04-19] MEDS: LEVOTHYROXINE SODIUM 0.15 MG TABLET PO SCH (06:23)
[2023-04-19] MEDS ORDERED: FUROSEMIDE 20 MG/2 ML VIAL IVP ONE (07:00)
[2023-04-19] MEDS: MONTELUKAST 10 MG TABLET PO SCH (09:27)
[2023-04-19] MEDS: TAMSULOSIN HCL 0.4 MG CAP PO SCH (09:27)
[2023-04-19] MEDS: ATORVASTATIN 20 MG TABLET PO SCH (09:27)
[2023-04-19] MEDS: CARVEDILOL 3.125 MG TABLET (COREG) PO SCH (09:27)
[2023-04-19] MEDS: PANTOPRAZOLE SODIUM 40 MG TAB PO SCH (09:27)
[2023-04-19] MEDS: FERROUS SULFATE 325 MG TABLET.DR PO SCH (09:27)
[2023-04-19] MEDS: INSULIN GLARGINE 100 UNITS/ML, 10 ML VIAL SQ SCH (09:50)
[2023-04-19] MEDS: SILDENAFIL CITRATE 20 MG TABLET PO SCH ×3 (10:13→21:34)
[2023-04-19] MEDS: INSULIN REGULAR, HUMAN 100 UNITS/ML, 3 ML VIAL (humuLIN R) SUBCUT PRN ×3 (11:59→21:45)
[2023-04-19] MEDS: NACL 0.9% 1,000 ML IV SCH (13:00)
[2023-04-19] MEDS ORDERED: POTASSIUM CHLORIDE 20 MEQ/PKT PACKET PO ONE (14:00)
[2023-04-19] MEDS ORDERED: FUROSEMIDE 20 MG TABLET PO ONE (14:00)
[2023-04-19 20:45] LABS: URINE SODIUM, RANDOM 16 mmol/L (40-220)
[2023-04-19] MEDS: traZODone HCL 50 MG TABLET (DESYREL) PO PRN (21:33)
[2023-04-19] MEDS: SODIUM CHLORIDE 500 MG TABLET PO SCH (21:34)
[2023-04-19] MEDS: HEPARIN SODIUM,PORCINE 5,000 UNITS/ML VIAL SUBCUT SCH (21:46)
[2023-04-20] VITALS (7 sets, daily range): BP systolic 100–127; PULSE 70–76; RESP 17–18; TEMP 97.1–98.2; O2SAT 97–100
[2023-04-20] MEDS: IPRATROPIUM/ALBUTEROL SULFATE 3 ML AMPUL.NEB (DUONEB) INH SCH ×4 (01:00→20:20)
[2023-04-20] MEDS: ceFAZolin SODIUM 1 GM in D5W 50 ML IV SCH ×2 (04:55→17:50)
[2023-04-20 06:07] LABS: HEPATITIS B CORE AB, TOTAL Positive (Negative); HEPATITIS B SURFACE AG Negative (Negative); HEPATITIS C VIRUS AB Non Reactive (Non Reactive)
[2023-04-20] MEDS: LEVOTHYROXINE SODIUM 0.15 MG TABLET PO SCH (06:20)
[2023-04-20 07:44] LABS: INR 5.8 (0.80-1.20); PROTHROMBIN TIME 55.2 SECS (9.5-12.5)
[2023-04-20 08:02] LABS: ALANINE AMINOTRANSFERASE 24 U/L (12-78); ALBUMIN 1.7 g/dL (3.4-4.8); ANION GAP 5 (5-15); ASPARTATE AMINOTRANSFERASE 226 U/L (10-37); CALCIUM 7.9 mg/dL (8.4-11.0); CARBON DIOXIDE 28 mmol/L (23-29); CREATININE 1.84 mg/dL (0.55-1.30); GLUCOSE 127 mg/dL (74-106); PHOSPHORUS 3.2 mg/dL (2.7-4.5); POTASSIUM 3.2 mmol/L (3.5-5.1); TOTAL BILIRUBIN 7.3 mg/dL (0.0-1.0); TOTAL PROTEIN, SERUM 5.4 g/dL (6.4-8.3); UREA NITROGEN, BLOOD 39 mg/dL (8-21)
[2023-04-20 08:05] LABS: CHLORIDE 85 mmol/L (98-107); SODIUM SERUM 118 mmol/L (136-145)
[2023-04-20 08:09] LABS: BASOPHILS % (AUTO) 0.5 % (0.0-2.0); EOSINOPHILS # (AUTO) 1.1 K/uL (0.0-0.4); EOSINOPHILS % (AUTO) 11.4 % (0.0-4.0); HEMATOCRIT 25.1 % (36-54); HEMOGLOBIN 8.4 g/dL (14.0-18.0); LYMPHOCYTES # (AUTO) 1.7 K/uL (1.0-5.5); LYMPHOCYTES % (AUTO) 16.7 % (20.5-51.5); MEAN CORPUSCULAR HEMOGLOBIN 25 pg (27-31); MEAN CORPUSCULAR HGB CONC 33 % (32-36); MEAN CORPUSCULAR VOLUME 76 fL (79.0-98.0); MONOCYTES # (AUTO) 0.7 K/uL (0.0-1.0); MONOCYTES % (AUTO) 7.3 % (1.7-9.3); NEUTROPHILS # (AUTO) 6.4 K/uL (1.8-7.7); NEUTROPHILS % (AUTO) 64.1 % (40.0-70.0); PLATELET COUNT (AUTO) 147 K/uL (130-430); RED CELL DISTRIBUTION WIDTH 16.7 % (9.0-15.0); WHITE BLOOD COUNT (AUTO) 9.9 K/uL (4.8-10.8)
[2023-04-20 08:38] LABS: ERYTHROCYTE SEDIMENTATION RATE 14 MM/HR (0-15)
[2023-04-20] MEDS ORDERED: FUROSEMIDE 20 MG TABLET PO SCH (09:00)
[2023-04-20] MEDS: HEPARIN SODIUM,PORCINE 5,000 UNITS/ML VIAL SUBCUT SCH (09:00)
[2023-04-20] MEDS: SODIUM CHLORIDE 500 MG TABLET PO SCH ×2 (09:02→21:26)
[2023-04-20] MEDS: POTASSIUM CHLORIDE 20 MEQ/PKT PACKET PO SCH (09:02)
[2023-04-20] MEDS: FERROUS SULFATE 325 MG TABLET.DR PO SCH (09:04)
[2023-04-20] MEDS: CARVEDILOL 3.125 MG TABLET (COREG) PO SCH (09:04)
[2023-04-20] MEDS: PANTOPRAZOLE SODIUM 40 MG TAB PO SCH (09:04)
[2023-04-20] MEDS: MONTELUKAST 10 MG TABLET PO SCH (09:04)
[2023-04-20] MEDS: TAMSULOSIN HCL 0.4 MG CAP PO SCH (09:05)
[2023-04-20] MEDS: INSULIN GLARGINE 100 UNITS/ML, 10 ML VIAL SQ SCH (09:08)
[2023-04-20] MEDS: ATORVASTATIN 20 MG TABLET PO SCH (09:16)
[2023-04-20] MEDS: SILDENAFIL CITRATE 20 MG TABLET PO SCH ×3 (09:22→21:25)
[2023-04-20 11:03] LABS: CREATININE, URINE 78.6 mg/dL (Not Estab.); MICROALBUMIN URINE RANDOM 35.9 ug/mL (Not Estab.)
[2023-04-20] MEDS ORDERED: PHYTONADIONE 10 MG/ML AMP SUBCUT ONE (11:15)
[2023-04-20] MEDS ORDERED: POTASSIUM CHLORIDE 20 MEQ TAB.PRT.SR PO ONE (11:15)
[2023-04-20 13:27] LABS: TOTAL IRON BIND. CAPACITY 106 ug/dL (250-450)
[2023-04-20] MEDS: NACL 0.9% 1,000 ML IV SCH (17:51)
[2023-04-20] MEDS: INSULIN REGULAR, HUMAN 100 UNITS/ML, 3 ML VIAL (humuLIN R) SUBCUT PRN ×2 (18:29→21:35)
[2023-04-20] MEDS ORDERED: SODIUM CHLORIDE 3% *HI-ALERT* 500 ML IV ONE (20:00)
[2023-04-20] MEDS: traZODone HCL 50 MG TABLET (DESYREL) PO PRN (21:27)
[2023-04-21] VITALS (8 sets, daily range): BP systolic 111–129; PULSE 68–72; RESP 17–18; TEMP 96.8–98.5; O2SAT 96–100
[2023-04-21] MEDS: IPRATROPIUM/ALBUTEROL SULFATE 3 ML AMPUL.NEB (DUONEB) INH SCH ×4 (01:00→20:12)
[2023-04-21 05:10] LABS: ERYTHROCYTE SEDIMENTATION RATE 16 MM/HR (0-15)
[2023-04-21 05:16] LABS: INR 2.3 (0.80-1.20); PROTHROMBIN TIME 22.6 SECS (9.5-12.5)
[2023-04-21 05:31] LABS: ANION GAP 7 (5-15); CALCIUM 7.8 mg/dL (8.4-11.0); CARBON DIOXIDE 28 mmol/L (23-29); CHLORIDE 88 mmol/L (98-107); CREATININE 1.72 mg/dL (0.55-1.30); GLUCOSE 126 mg/dL (74-106); PHOSPHORUS 3.1 mg/dL (2.7-4.5); POTASSIUM 3.8 mmol/L (3.5-5.1); SODIUM SERUM 123 mmol/L (136-145); UREA NITROGEN, BLOOD 41 mg/dL (8-21)
[2023-04-21] MEDS: LEVOTHYROXINE SODIUM 0.15 MG TABLET PO SCH (06:34)
[2023-04-21 08:05] LABS: BASOPHILS # (AUTO) 0.1 K/uL (0.0-0.2); BASOPHILS % (AUTO) 0.5 % (0.0-2.0); EOSINOPHILS # (AUTO) 1.2 K/uL (0.0-0.4); EOSINOPHILS % (AUTO) 11.7 % (0.0-4.0); HEMATOCRIT 26.9 % (36-54); HEMOGLOBIN 8.5 g/dL (14.0-18.0); LYMPHOCYTES # (AUTO) 1.5 K/uL (1.0-5.5); LYMPHOCYTES % (AUTO) 14.5 % (20.5-51.5); MEAN CORPUSCULAR HEMOGLOBIN 24 pg (27-31); MEAN CORPUSCULAR HGB CONC 32 % (32-36); MEAN CORPUSCULAR VOLUME 76 fL (79.0-98.0); MONOCYTES # (AUTO) 0.8 K/uL (0.0-1.0); MONOCYTES % (AUTO) 7.1 % (1.7-9.3); NEUTROPHILS # (AUTO) 7.1 K/uL (1.8-7.7); NEUTROPHILS % (AUTO) 66.2 % (40.0-70.0); PLATELET COUNT (AUTO) 142 K/uL (130-430); RED BLOOD CELL COUNT(AUTO) 3.52 MIL/uL (4.2-6.2); RED CELL DISTRIBUTION WIDTH 16.7 % (9.0-15.0); WHITE BLOOD COUNT (AUTO) 10.6 K/uL (4.8-10.8)
[2023-04-21 08:06] LABS: AFP, TUMOR MARKER 2.9 ng/mL (0.0-6.4); ALPHA-1-ANTITRYPSIN, S 142 mg/dL (101-187)
[2023-04-21] MEDS ORDERED: FUROSEMIDE 20 MG TABLET PO SCH ×2 (09:00)
[2023-04-21] MEDS: PANTOPRAZOLE SODIUM 40 MG TAB PO SCH (09:16)
[2023-04-21] MEDS: POTASSIUM CHLORIDE 20 MEQ/PKT PACKET PO SCH (09:16)
[2023-04-21] MEDS: SILDENAFIL CITRATE 20 MG TABLET PO SCH ×3 (09:16→21:34)
[2023-04-21] MEDS: ATORVASTATIN 20 MG TABLET PO SCH (09:16)
[2023-04-21] MEDS: FERROUS SULFATE 325 MG TABLET.DR PO SCH (09:17)
[2023-04-21] MEDS: SODIUM CHLORIDE 500 MG TABLET PO SCH ×2 (09:17→21:34)
[2023-04-21] MEDS: TAMSULOSIN HCL 0.4 MG CAP PO SCH (09:17)
[2023-04-21] MEDS: MONTELUKAST 10 MG TABLET PO SCH (09:17)
[2023-04-21] MEDS: CARVEDILOL 3.125 MG TABLET (COREG) PO SCH (09:18)
[2023-04-21] MEDS: INSULIN GLARGINE 100 UNITS/ML, 10 ML VIAL SQ SCH (09:37)
[2023-04-21 11:07] LABS: FERRITIN 3964 ng/mL (30-400)
[2023-04-21 12:06] LABS: ANTI NUCLEAR AB WITH REFLEX Positive (Negative)
[2023-04-21] MEDS: INSULIN REGULAR, HUMAN 100 UNITS/ML, 3 ML VIAL (humuLIN R) SUBCUT PRN ×3 (12:18→21:41)
[2023-04-21] MEDS: NACL 0.9% 1,000 ML IV SCH (14:15)
[2023-04-21] MEDS: traZODone HCL 50 MG TABLET (DESYREL) PO PRN (21:34)
[2023-04-21] MEDS: FUROSEMIDE 20 MG TABLET PO SCH (21:34)
[2023-04-21] MEDS: ALBUMIN HUMAN 25% 100 ML IV SCH (23:28)
[2023-04-22] VITALS (10 sets, daily range): BP systolic 109–129; PULSE 70–78; RESP 14–18; TEMP 96.8–97.5; O2SAT 94–100
[2023-04-22] MEDS: IPRATROPIUM/ALBUTEROL SULFATE 3 ML AMPUL.NEB (DUONEB) INH SCH ×4 (01:00→20:16)
[2023-04-22] MEDS: ALBUMIN HUMAN 25% 100 ML IV SCH ×2 (02:35→09:56)
[2023-04-22 04:49] LABS: BASOPHILS % (AUTO) 0.3 % (0.0-2.0); EOSINOPHILS # (AUTO) 1.2 K/uL (0.0-0.4); EOSINOPHILS % (AUTO) 13.2 % (0.0-4.0); HEMATOCRIT 23.3 % (36-54); HEMOGLOBIN 7.6 g/dL (14.0-18.0); LYMPHOCYTES # (AUTO) 1.3 K/uL (1.0-5.5); MEAN CORPUSCULAR HEMOGLOBIN 25 pg (27-31); MEAN CORPUSCULAR HGB CONC 33 % (32-36); MEAN CORPUSCULAR VOLUME 76 fL (79.0-98.0); MONOCYTES # (AUTO) 0.6 K/uL (0.0-1.0); MONOCYTES % (AUTO) 6.9 % (1.7-9.3); NEUTROPHILS # (AUTO) 5.7 K/uL (1.8-7.7); NEUTROPHILS % (AUTO) 64.6 % (40.0-70.0); PLATELET COUNT (AUTO) 136 K/uL (130-430); RED BLOOD CELL COUNT(AUTO) 3.06 MIL/uL (4.2-6.2); RED CELL DISTRIBUTION WIDTH 17.5 % (9.0-15.0); WHITE BLOOD COUNT (AUTO) 8.9 K/uL (4.8-10.8)
[2023-04-22 05:00] LABS: ALANINE AMINOTRANSFERASE 26 U/L (12-78); ALBUMIN 2.5 g/dL (3.4-4.8); ANION GAP 7 (5-15); ASPARTATE AMINOTRANSFERASE 260 U/L (10-37); BILIRUBIN,DIRECT 7.3 mg/dL (0.0-0.3); CALCIUM 8.1 mg/dL (8.4-11.0); CARBON DIOXIDE 28 mmol/L (23-29); CHLORIDE 92 mmol/L (98-107); CREATININE 1.63 mg/dL (0.55-1.30); GLUCOSE 129 mg/dL (74-106); PHOSPHORUS 2.9 mg/dL (2.7-4.5); SODIUM SERUM 127 mmol/L (136-145); TOTAL BILIRUBIN 8.9 mg/dL (0.0-1.0); UREA NITROGEN, BLOOD 39 mg/dL (8-21)
[2023-04-22] MEDS: LEVOTHYROXINE SODIUM 0.15 MG TABLET PO SCH (06:39)
[2023-04-22] MEDS: SILDENAFIL CITRATE 20 MG TABLET PO SCH ×3 (09:53→21:36)
[2023-04-22] MEDS: SODIUM CHLORIDE 500 MG TABLET PO SCH ×2 (09:54→21:35)
[2023-04-22] MEDS: CARVEDILOL 3.125 MG TABLET (COREG) PO SCH (09:54)
[2023-04-22] MEDS: TAMSULOSIN HCL 0.4 MG CAP PO SCH (09:54)
[2023-04-22] MEDS: PANTOPRAZOLE SODIUM 40 MG TAB PO SCH (09:54)
[2023-04-22] MEDS: ATORVASTATIN 20 MG TABLET PO SCH (09:55)
[2023-04-22] MEDS: FERROUS SULFATE 325 MG TABLET.DR PO SCH (09:55)
[2023-04-22] MEDS: POTASSIUM CHLORIDE 20 MEQ/PKT PACKET PO SCH (09:55)
[2023-04-22] MEDS: MONTELUKAST 10 MG TABLET PO SCH (09:55)
[2023-04-22] MEDS: FUROSEMIDE 20 MG TABLET PO SCH ×2 (09:55→21:36)
[2023-04-22] MEDS: INSULIN GLARGINE 100 UNITS/ML, 10 ML VIAL SQ SCH (10:02)
[2023-04-22] MEDS: NACL 0.9% 1,000 ML IV SCH (14:28)
[2023-04-22] MEDS: INSULIN REGULAR, HUMAN 100 UNITS/ML, 3 ML VIAL (humuLIN R) SUBCUT PRN ×2 (16:14→21:41)
[2023-04-22] MEDS: traZODone HCL 50 MG TABLET (DESYREL) PO PRN (21:44)
[2023-04-23] VITALS (9 sets, daily range): BP systolic 107–119; PULSE 70–80; RESP 16–19; TEMP 96.7–98.5; O2SAT 95–100
[2023-04-23] MEDS: IPRATROPIUM/ALBUTEROL SULFATE 3 ML AMPUL.NEB (DUONEB) INH SCH ×4 (00:39→20:31)
[2023-04-23 04:48] LABS: BASOPHILS % (AUTO) 0.3 % (0.0-2.0); EOSINOPHILS # (AUTO) 1.3 K/uL (0.0-0.4); EOSINOPHILS % (AUTO) 15.1 % (0.0-4.0); LYMPHOCYTES # (AUTO) 1.2 K/uL (1.0-5.5); MEAN CORPUSCULAR HEMOGLOBIN 25 pg (27-31); MEAN CORPUSCULAR HGB CONC 32 % (32-36); MEAN CORPUSCULAR VOLUME 76 fL (79.0-98.0); MONOCYTES # (AUTO) 0.6 K/uL (0.0-1.0); MONOCYTES % (AUTO) 6.7 % (1.7-9.3); NEUTROPHILS # (AUTO) 5.4 K/uL (1.8-7.7); NEUTROPHILS % (AUTO) 63.9 % (40.0-70.0); PLATELET COUNT (AUTO) 125 K/uL (130-430); RED BLOOD CELL COUNT(AUTO) 2.78 MIL/uL (4.2-6.2); WHITE BLOOD COUNT (AUTO) 8.4 K/uL (4.8-10.8)
[2023-04-23 05:16] LABS: HEMATOCRIT 21.2 % (36-54); HEMOGLOBIN 6.8 g/dL (14.0-18.0)
[2023-04-23 05:49] LABS: ANION GAP 5 (5-15); CARBON DIOXIDE 28 mmol/L (23-29); CHLORIDE 94 mmol/L (98-107); CREATININE 1.64 mg/dL (0.55-1.30); GLUCOSE 128 mg/dL (74-106); POTASSIUM 3.9 mmol/L (3.5-5.1); SODIUM SERUM 127 mmol/L (136-145); UREA NITROGEN, BLOOD 40 mg/dL (8-21)
[2023-04-23] MEDS: LEVOTHYROXINE SODIUM 0.15 MG TABLET PO SCH (06:31)
[2023-04-23 08:06] LABS: AFP, TUMOR MARKER 2.9 ng/mL (0.0-6.4)
[2023-04-23] MEDS: INSULIN GLARGINE 100 UNITS/ML, 10 ML VIAL SQ SCH (09:00)
[2023-04-23] MEDS: FERROUS SULFATE 325 MG TABLET.DR PO SCH (10:01)
[2023-04-23] MEDS: TAMSULOSIN HCL 0.4 MG CAP PO SCH (10:02)
[2023-04-23] MEDS: SODIUM CHLORIDE 500 MG TABLET PO SCH ×2 (10:02→21:59)
[2023-04-23] MEDS: PANTOPRAZOLE SODIUM 40 MG TAB PO SCH (10:02)
[2023-04-23] MEDS: POTASSIUM CHLORIDE 20 MEQ/PKT PACKET PO SCH (10:02)
[2023-04-23] MEDS: ATORVASTATIN 20 MG TABLET PO SCH (10:02)
[2023-04-23] MEDS: CARVEDILOL 3.125 MG TABLET (COREG) PO SCH (10:05)
[2023-04-23] MEDS: FUROSEMIDE 20 MG TABLET PO SCH ×2 (10:06→21:59)
[2023-04-23] MEDS: SILDENAFIL CITRATE 20 MG TABLET PO SCH ×3 (10:14→22:01)
[2023-04-23] MEDS: MONTELUKAST 10 MG TABLET PO SCH (10:14)
[2023-04-23] MEDS: NACL 0.9% 1,000 ML IV SCH (15:21)
[2023-04-23] MEDS: INSULIN REGULAR, HUMAN 100 UNITS/ML, 3 ML VIAL (humuLIN R) SUBCUT PRN ×2 (18:05→22:05)
[2023-04-23] MEDS: traZODone HCL 50 MG TABLET (DESYREL) PO PRN (21:59)
[2023-04-24] VITALS (10 sets, daily range): BP systolic 115–135; PULSE 70–85; RESP 14–18; TEMP 96.1–98.9; O2SAT 95–99
[2023-04-24] MEDS: IPRATROPIUM/ALBUTEROL SULFATE 3 ML AMPUL.NEB (DUONEB) INH SCH ×4 (01:00→23:36)
[2023-04-24 06:26] LABS: BASOPHILS % (AUTO) 0.4 % (0.0-2.0); EOSINOPHILS % (AUTO) 10.8 % (0.0-4.0); HEMATOCRIT 26.9 % (36-54); HEMOGLOBIN 8.7 g/dL (14.0-18.0); LYMPHOCYTES # (AUTO) 1.2 K/uL (1.0-5.5); LYMPHOCYTES % (AUTO) 12.3 % (20.5-51.5); MEAN CORPUSCULAR HEMOGLOBIN 26 pg (27-31); MEAN CORPUSCULAR HGB CONC 32 % (32-36); MEAN CORPUSCULAR VOLUME 79 fL (79.0-98.0); MONOCYTES # (AUTO) 0.5 K/uL (0.0-1.0); MONOCYTES % (AUTO) 5.3 % (1.7-9.3); NEUTROPHILS # (AUTO) 6.7 K/uL (1.8-7.7); NEUTROPHILS % (AUTO) 71.2 % (40.0-70.0); PLATELET COUNT (AUTO) 125 K/uL (130-430); RED CELL DISTRIBUTION WIDTH 18.5 % (9.0-15.0); WHITE BLOOD COUNT (AUTO) 9.5 K/uL (4.8-10.8)
[2023-04-24 06:49] LABS: ALANINE AMINOTRANSFERASE 36 U/L (12-78); ALBUMIN 2.7 g/dL (3.4-4.8); ANION GAP 8 (5-15); ASPARTATE AMINOTRANSFERASE 276 U/L (10-37); BILIRUBIN,DIRECT 8.7 mg/dL (0.0-0.3); CALCIUM 7.9 mg/dL (8.4-11.0); CARBON DIOXIDE 26 mmol/L (23-29); CHLORIDE 96 mmol/L (98-107); CREATININE 1.62 mg/dL (0.55-1.30); GLUCOSE 157 mg/dL (74-106); PHOSPHORUS 2.8 mg/dL (2.7-4.5); POTASSIUM 4.1 mmol/L (3.5-5.1); SODIUM SERUM 130 mmol/L (136-145); TOTAL BILIRUBIN 10.7 mg/dL (0.0-1.0); TOTAL PROTEIN, SERUM 5.9 g/dL (6.4-8.3); UREA NITROGEN, BLOOD 40 mg/dL (8-21)
[2023-04-24] MEDS: LEVOTHYROXINE SODIUM 0.15 MG TABLET PO SCH (07:01)
[2023-04-24] MEDS: SILDENAFIL CITRATE 20 MG TABLET PO SCH ×3 (08:38→23:22)
[2023-04-24] MEDS: POTASSIUM CHLORIDE 20 MEQ/PKT PACKET PO SCH (08:38)
[2023-04-24] MEDS: SODIUM CHLORIDE 500 MG TABLET PO SCH ×2 (08:39→23:22)
[2023-04-24] MEDS: MONTELUKAST 10 MG TABLET PO SCH (08:39)
[2023-04-24] MEDS: PANTOPRAZOLE SODIUM 40 MG TAB PO SCH (08:39)
[2023-04-24] MEDS: CARVEDILOL 3.125 MG TABLET (COREG) PO SCH (08:40)
[2023-04-24] MEDS: ATORVASTATIN 20 MG TABLET PO SCH (08:40)
[2023-04-24] MEDS: FERROUS SULFATE 325 MG TABLET.DR PO SCH (08:40)
[2023-04-24] MEDS: FUROSEMIDE 20 MG TABLET PO SCH ×2 (08:41→23:22)
[2023-04-24] MEDS: TAMSULOSIN HCL 0.4 MG CAP PO SCH (08:41)
[2023-04-24] MEDS: INSULIN GLARGINE 100 UNITS/ML, 10 ML VIAL SQ SCH (08:52)
[2023-04-24] MEDS: NACL 0.9% 1,000 ML IV SCH (14:15)
[2023-04-24] MEDS: INSULIN REGULAR, HUMAN 100 UNITS/ML, 3 ML VIAL (humuLIN R) SUBCUT PRN ×2 (16:48→23:25)
[2023-04-24] MEDS ORDERED: FUROSEMIDE 40 MG/4 ML VIAL IVP ONE (17:00)
[2023-04-24] MEDS: traZODone HCL 50 MG TABLET (DESYREL) PO PRN (23:21)
[2023-04-25] VITALS (9 sets, daily range): BP systolic 120–136; PULSE 71–76; RESP 16–20; TEMP 97–97.7; O2SAT 95–98
[2023-04-25 05:20] LABS: BASOPHILS % (AUTO) 0.4 % (0.0-2.0); EOSINOPHILS # (AUTO) 1.1 K/uL (0.0-0.4); EOSINOPHILS % (AUTO) 11.4 % (0.0-4.0); HEMATOCRIT 26.3 % (36-54); HEMOGLOBIN 8.5 g/dL (14.0-18.0); LYMPHOCYTES # (AUTO) 1.2 K/uL (1.0-5.5); LYMPHOCYTES % (AUTO) 11.9 % (20.5-51.5); MEAN CORPUSCULAR HEMOGLOBIN 25 pg (27-31); MEAN CORPUSCULAR HGB CONC 32 % (32-36); MEAN CORPUSCULAR VOLUME 78 fL (79.0-98.0); MONOCYTES # (AUTO) 0.6 K/uL (0.0-1.0); MONOCYTES % (AUTO) 5.7 % (1.7-9.3); NEUTROPHILS # (AUTO) 6.9 K/uL (1.8-7.7); NEUTROPHILS % (AUTO) 70.6 % (40.0-70.0); PLATELET COUNT (AUTO) 133 K/uL (130-430); RED BLOOD CELL COUNT(AUTO) 3.35 MIL/uL (4.2-6.2); RED CELL DISTRIBUTION WIDTH 17.7 % (9.0-15.0); WHITE BLOOD COUNT (AUTO) 9.8 K/uL (4.8-10.8)
[2023-04-25 05:57] LABS: ALANINE AMINOTRANSFERASE 45 U/L (12-78); ALBUMIN 2.4 g/dL (3.4-4.8); ANION GAP 7 (5-15); ASPARTATE AMINOTRANSFERASE 268 U/L (10-37); CALCIUM 7.9 mg/dL (8.4-11.0); CARBON DIOXIDE 27 mmol/L (23-29); CHLORIDE 97 mmol/L (98-107); CREATININE 1.66 mg/dL (0.55-1.30); GLUCOSE 151 mg/dL (74-106); PHOSPHORUS 2.8 mg/dL (2.7-4.5); POTASSIUM 3.8 mmol/L (3.5-5.1); SODIUM SERUM 131 mmol/L (136-145); TOTAL BILIRUBIN 10.5 mg/dL (0.0-1.0); TOTAL PROTEIN, SERUM 5.8 g/dL (6.4-8.3); UREA NITROGEN, BLOOD 37 mg/dL (8-21)
[2023-04-25] MEDS: LEVOTHYROXINE SODIUM 0.15 MG TABLET PO SCH (06:38)
[2023-04-25] MEDS: IPRATROPIUM/ALBUTEROL SULFATE 3 ML AMPUL.NEB (DUONEB) INH SCH ×3 (07:32→19:39)
[2023-04-25] MEDS: FERROUS SULFATE 325 MG TABLET.DR PO SCH (10:01)
[2023-04-25] MEDS: MONTELUKAST 10 MG TABLET PO SCH (10:04)
[2023-04-25] MEDS: FUROSEMIDE 20 MG TABLET PO SCH ×2 (10:05→22:48)
[2023-04-25] MEDS: POTASSIUM CHLORIDE 20 MEQ/PKT PACKET PO SCH (10:05)
[2023-04-25] MEDS: CARVEDILOL 3.125 MG TABLET (COREG) PO SCH (10:06)
[2023-04-25] MEDS: SODIUM CHLORIDE 500 MG TABLET PO SCH ×2 (10:06→22:48)
[2023-04-25] MEDS: SILDENAFIL CITRATE 20 MG TABLET PO SCH ×3 (10:06→22:48)
[2023-04-25] MEDS: ATORVASTATIN 20 MG TABLET PO SCH (10:06)
[2023-04-25] MEDS: TAMSULOSIN HCL 0.4 MG CAP PO SCH (10:07)
[2023-04-25] MEDS: PANTOPRAZOLE SODIUM 40 MG TAB PO SCH (10:07)
[2023-04-25] MEDS: INSULIN GLARGINE 100 UNITS/ML, 10 ML VIAL SQ SCH (10:24)
[2023-04-25] MEDS ORDERED: ALBUMIN HUMAN 25% 200 ML IV ONE (11:15)
[2023-04-25] MEDS ORDERED: IPRATROPIUM/ALBUTEROL SULFATE 3 ML AMPUL.NEB (DUONEB) INH PRN (11:30)
[2023-04-25] MEDS: INSULIN REGULAR, HUMAN 100 UNITS/ML, 3 ML VIAL (humuLIN R) SUBCUT PRN ×3 (12:08→22:53)
[2023-04-25] MEDS ORDERED: ALBUMIN HUMAN 25% 50 ML IV SCH (13:00)
[2023-04-25] MEDS: NACL 0.9% 1,000 ML IV SCH (16:48)
[2023-04-25] MEDS ORDERED: FUROSEMIDE 40 MG/4 ML VIAL IVP ONE (19:45)
[2023-04-26] VITALS (9 sets, daily range): BP systolic 126–152; PULSE 69–72; RESP 16–18; TEMP 96.7–98.6; O2SAT 94–98
[2023-04-26] MEDS ORDERED: DIPHENHYDRAMINE HCL 50 MG CAPSULE PO ONE (00:30)
[2023-04-26] MEDS: IPRATROPIUM/ALBUTEROL SULFATE 3 ML AMPUL.NEB (DUONEB) INH SCH ×3 (00:34→13:00)
[2023-04-26 05:56] LABS: BASOPHILS % (AUTO) 0.4 % (0.0-2.0); EOSINOPHILS % (AUTO) 10.8 % (0.0-4.0); HEMATOCRIT 24.7 % (36-54); LYMPHOCYTES # (AUTO) 1.1 K/uL (1.0-5.5); LYMPHOCYTES % (AUTO) 11.3 % (20.5-51.5); MEAN CORPUSCULAR HEMOGLOBIN 26 pg (27-31); MEAN CORPUSCULAR HGB CONC 33 % (32-36); MEAN CORPUSCULAR VOLUME 78 fL (79.0-98.0); MONOCYTES # (AUTO) 0.6 K/uL (0.0-1.0); MONOCYTES % (AUTO) 6.5 % (1.7-9.3); NEUTROPHILS # (AUTO) 6.7 K/uL (1.8-7.7); PLATELET COUNT (AUTO) 128 K/uL (130-430); RED BLOOD CELL COUNT(AUTO) 3.14 MIL/uL (4.2-6.2); RED CELL DISTRIBUTION WIDTH 18.2 % (9.0-15.0); WHITE BLOOD COUNT (AUTO) 9.5 K/uL (4.8-10.8)
[2023-04-26 06:07] LABS: ANION GAP 6 (5-15); CALCIUM 8.2 mg/dL (8.4-11.0); CARBON DIOXIDE 27 mmol/L (23-29); CHLORIDE 98 mmol/L (98-107); CREATININE 1.71 mg/dL (0.55-1.30); GLUCOSE 138 mg/dL (74-106); SODIUM SERUM 131 mmol/L (136-145); UREA NITROGEN, BLOOD 37 mg/dL (8-21)
[2023-04-26] MEDS: LEVOTHYROXINE SODIUM 0.15 MG TABLET PO SCH (06:36)
[2023-04-26 07:45] LABS: BILIRUBIN,DIRECT 8.5 mg/dL (0.0-0.3); TOTAL PROTEIN, SERUM 5.9 g/dL (6.4-8.3)
[2023-04-26 08:00] LABS: TOTAL BILIRUBIN 10.7 mg/dL (0.0-1.0)
[2023-04-26] MEDS: POTASSIUM CHLORIDE 20 MEQ/PKT PACKET PO SCH (10:21)
[2023-04-26] MEDS: MONTELUKAST 10 MG TABLET PO SCH (10:21)
[2023-04-26] MEDS: TAMSULOSIN HCL 0.4 MG CAP PO SCH (10:21)
[2023-04-26] MEDS: PANTOPRAZOLE SODIUM 40 MG TAB PO SCH (10:22)
[2023-04-26] MEDS: SODIUM CHLORIDE 500 MG TABLET PO SCH ×2 (10:22→20:16)
[2023-04-26] MEDS: ATORVASTATIN 20 MG TABLET PO SCH (10:22)
[2023-04-26] MEDS: FUROSEMIDE 20 MG TABLET PO SCH ×2 (10:22→20:15)
[2023-04-26] MEDS: CARVEDILOL 3.125 MG TABLET (COREG) PO SCH (10:23)
[2023-04-26] MEDS: SILDENAFIL CITRATE 20 MG TABLET PO SCH ×3 (10:27→20:16)
[2023-04-26] MEDS: INSULIN GLARGINE 100 UNITS/ML, 10 ML VIAL SQ SCH (10:29)
[2023-04-26] MEDS: INSULIN REGULAR, HUMAN 100 UNITS/ML, 3 ML VIAL (humuLIN R) SUBCUT PRN ×2 (17:27→20:29)
== END 2023-04-26 19:00 | disposition home health service (06) | DRG 871 ==
LOC: SED 04:31 → STU 10:16 → SMU 04-18 15:53
PROVIDERS: ADMIT Specialist; ATTEND Specialist
PROC: 0W993ZZ Drainage of Right Pleural Cavity, Percutaneous Approach (ICD-10-PCS; principal; 2023-04-14)
PROC: 30233N1 Transfusion of Nonautologous Red Blood Cells into Peripheral Vein, Percutaneous Approach (ICD-10-PCS; 2023-04-23)
DX: A41.9 Sepsis, unspecified organism (principal); E43 Unspecified severe protein-calorie malnutrition; J18.9 Pneumonia, unspecified organism; J96.01 Acute respiratory failure with hypoxia; E87.1 Hypo-osmolality and hyponatremia; N17.9 Acute kidney failure, unspecified; N39.0 Urinary tract infection, site not specified; I48.20 Chronic atrial fibrillation, unspecified; J44.0 Chronic obstructive pulmonary disease with (acute) lower respiratory infection; I13.0 Hypertensive heart and chronic kidney disease with heart failure and stage 1 through stage 4 chronic kidney disease, or unspecified chronic kidney disease; R18.8 Other ascites; J91.8 Pleural effusion in other conditions classified elsewhere; B17.9 Acute viral hepatitis, unspecified; I50.9 Heart failure, unspecified; Z20.822 Contact with and (suspected) exposure to COVID-19; E83.39 Other disorders of phosphorus metabolism; E78.5 Hyperlipidemia, unspecified; E66.01 Morbid (severe) obesity due to excess calories; E11.65 Type 2 diabetes mellitus with hyperglycemia; E11.22 Type 2 diabetes mellitus with diabetic chronic kidney disease; D69.6 Thrombocytopenia, unspecified; D63.1 Anemia in chronic kidney disease; E83.51 Hypocalcemia; N18.32 Chronic kidney disease, stage 3b; E87.6 Hypokalemia; K72.90 Hepatic failure, unspecified without coma; I27.21 Secondary pulmonary arterial hypertension; K81.1 Chronic cholecystitis; I25.10 Atherosclerotic heart disease of native coronary artery without angina pectoris; K76.9 Liver disease, unspecified; E89.0 Postprocedural hypothyroidism; Z86.73 Personal history of transient ischemic attack (TIA), and cerebral infarction without residual deficits; Z87.891 Personal history of nicotine dependence; Z82.49 Family history of ischemic heart disease and other diseases of the circulatory system; Z95.0 Presence of cardiac pacemaker; Z83.3 Family history of diabetes mellitus; Z82.3 Family history of stroke; Z84.1 Family history of disorders of kidney and ureter; Z79.01 Long term (current) use of anticoagulants; Z68.30 Body mass index [BMI] 30.0-30.9, adult; Z90.49 Acquired absence of other specified parts of digestive tract; Z88.1 Allergy status to other antibiotic agents; Z79.899 Other long term (current) drug therapy
CPT/HCPCS: 32555; 36415; 36600; 71045; 76376; 76604; 76700-TC; 76770; 80048; 80053; 80076; 81000; 82043; 82103; 82105; 82378; 82533; 82570; 82728; 82803; 82962; 83516; 83540; 83550; 83605; 83735; 83880; 83935; 84100; 84157; 84302; 84443; 84484; 84550; 85025; 85610-TC; 85651-TC; 85730-TC; 86038; 86704; 86706; 86708; 86803; 86886; 86900; 86901; 86920; 87040; 87070-TC; 87081; 87086; 87340; 88108; 88305; 93005; 93306; 94640; 94760; 96365; 96367; 97110-GP; 97116-GP; 97163-GP; 97530-GP; 99291; G0378; J0690; J1644; J1815; J1940; J1956; J2405; J3430; J3475; J3490; J7030; J7040; J7050; J7060; P9021; P9046; Q0163